=== PATIENT | female | born 1970 | race African-American/Black ===

== ENCOUNTER 2020-03-24 00:10 | Outpatient (CLI) | payer OTHER, SELFPAY ==
[2020-03-24 18:28] LABS: SARS-CoV-2 RNA PCR Negative
== END 2020-03-24 00:11 | disposition home or self-care (01) ==
LOC: ANHCOVIDDT 00:10
PROVIDERS: PCP Nurse Practitioner Family; Visit Provider Obstetrics & Gynecology
DX: Z01.812 Encounter for preprocedural laboratory examination (principal); Z20.828 Contact with and (suspected) exposure to other viral communicable diseases
CPT/HCPCS: 87635; C9803; U0003

== ENCOUNTER 2020-03-26 04:16 | Day surgery (SDC) | payer OTHER, SELFPAY ==
[2020-03-19 15:12] VITALS: BMI 50.3
--- NOTE | 2020-03-26 08:49 | PM.HPGS ---
History of Present Illness History of Present Illness Consent: Risks, benefits, and alternatives have been discussed and questions answered. Patient agrees to proceed with procedure. Chief complaint: Abnormal Uterine Bleeding/ Fibroids Narrative: Saritha Wheeler is a 49 year old female with heavy abnormal bleeding for years. [facility] Past Medical History Medical History (Updated 03/26/20 @ 08:52 by Tim Rico MD) Abnormal uterine bleeding (AUB) Hypertension Surgical History Surgical History (Updated 03/26/20 @ 08:51 by Tim Rico MD) H/O: Social History Social History Smoking status: Never smoker Spiritual care concerns: No Meds Home Medications and Allergies Home Medications Medication Instructions Recorded Confirmed Type ergocalciferol (vitamin D2) 50,000 unit PO WEEKLY 03/19/20 03/19/20 History hydrochlorothiazide 50 mg PO DAILY 03/19/20 03/19/20 History liraglutide (weight loss) [Saxenda] 3 mg SUBCUT DAILY 03/19/20 03/19/20 History multivitamin 1 tablet PO DAILY 03/19/20 03/19/20 History omega 6-qoz-sow-fish oil [Fish Oil] 1 cap PO DAILY 03/19/20 03/19/20 History Allergies Allergy/AdvReac Type Severity Reaction Status Date / Time hydrocodone AdvReac HALLUCINATI Verified 03/19/20 15:13 ONS Exam Const: General: no acute distress Resp: Auscultation: clear to auscultation bilaterally Cardio: Rate: regular rate Rhythm: regular rhythm GI: GI Palp: Yes Soft to palpation : External Female Exam: normal external appearance Assessment and Plan Assessment and plan (1) Hypertension: Code(s): I10 - Essential (primary) hypertension Status: Acute (2) H/O: : Code(s): Z98.891 - History of uterine scar from previous surgery Status: Acute (3) Abnormal uterine bleeding (AUB): Code(s): N93.9 - Abnormal uterine and vaginal bleeding, unspecified Status: Acute Assessment and Plan: scheduled for a hysteroscopy dilation and curettage with possible myosure.
[2020-03-26] MEDS: ACETAMINOPHEN 500 MG TABLET 1000 MG PO (12:08)
[2020-03-26] MEDS: LACTATED RINGERS 1,000 ML 30 ML IV CONT (12:08)
--- NOTE | 2020-03-26 12:52 | WPDANESEPPF ---
Anes - Initial Pre Proc Eval Procedure: Operation Date: 03/26/20 14:30 Proposed Procedures p Hysteroscopy, Dilation And Curettage, Possible Myosure - Tim Rico MD Date/Time: 03/26/20 12:52 Surgeon: Tim Rico MD Pre Op Diagnosis: Abnormal Uterine Bleeding/ Fibroids Patient Data Age: 49 Gender: F Height: 5 ft Weight: 117.03 kg Allergies Allergy/AdvReac Type Severity Reaction Status Date / Time hydrocodone AdvReac HALLUCINATI Verified 03/26/20 12:50 ONS Home Medications Medication Instructions Recorded Confirmed Type ergocalciferol (vitamin D2) 50,000 unit PO WEEKLY 03/19/20 03/26/20 History hydrochlorothiazide 50 mg PO DAILY 03/19/20 03/26/20 History liraglutide (weight loss) [Saxenda] 3 mg SUBCUT DAILY 03/19/20 03/26/20 History multivitamin 1 tablet PO DAILY 03/19/20 03/26/20 History omega 1-lin-xsy-fish oil [Fish Oil] 1 cap PO DAILY 03/19/20 03/26/20 History Patient hx anesthesia problems: none Family hx anesthesia problems: none PMFSH Past Medical History Medical History Abnormal uterine bleeding (AUB) Hypertension Surgical History Surgical History H/O: Social History Social History Smoking status: Never smoker Spiritual care concerns: No Anes - Eval Final PreProcedure Day of Procedure 03/26/20 12:52 Patient weight: super morbidly obese Heart: regular rate and rhythm Lungs: clear to auscultation Airway: Mallampati scale class II Neurological: alert and oriented Last oral intake: >/= 8 hours ASA classification: III Emergent: no Anesthetic plan: proceed Anesthesia type and monitoring: general GIVS and standard monitoring Informed Consent: The patient's anesthetic plan and its attendant risks and benefits were discussed with the patient/family/POA. Questions were solicited and answers provided to the satisfaction of the patient/family/POA.
[2020-03-26 12:57] VITALS: BP 118/78; PULSE 80; RESP 18; TEMP 37.1; O2SAT 100
--- NOTE | 2020-03-26 13:26 | WPDHPUPDATE1 ---
History and Physical Update Update Date/Time: 03/26/20 13:26 History and Physical has been reviewed, including an updated exam of the patient. There are NO changes in the patient's condition. Risks, benefits, and alternatives have been discussed and questions answered. Patient agrees to proceed with procedure.
--- NOTE | 2020-03-26 14:56 | SUR.OPER ---
1400ml ns in and 1400ml ns measured out, aware
[2020-03-26 15:02] VITALS: BP 147/96; PULSE 78; RESP 12; O2SAT 100
--- NOTE | 2020-03-26 15:02 | PM.PROC ---
Procedure Note - Detailed Date of procedure: 03/26/20 Pre-op diagnosis: Abnormal Uterine Bleeding/ Fibroids Post-op diagnosis: same Procedure performed: hysteroscopy Dilation and curettage Description of procedure: Patient is taken to the operating room and placed in a dorsal lithotomy position. She was reprepped and draped in a normal sterile fashion. a bivalve speculum was placed into the vagina. Anterior lip of the cervix was grasped with a single-tooth tenaculum. Uterus was injected at 2 and 10 o'clock position of the cervix. Uterus was sounded to 8centimeters. The cervix was then serially dilated with Hegar dilators to an 8. The hysteroscope was introduced into the uterine cavity and noted bilateral tubal ostia with thickened endometrial tissue the hysteroscope was removed a sharp curettage was performed in all 4 quadrants of the uterus. The products were sent to pathology instruments were removed from the vagina tenaculum site was hemostatic patient tolerated procedure well sponge lap and needle counts were correct x2. Anesthesia: MAC and local Surgeon: Tim Rico MD Estimated blood loss (mL): 10 Drains: No Packing: No Pathology: yes Complications: None Condition: stable Disposition: observation
[2020-03-26 15:30] VITALS: BP 139/95; PULSE 72; RESP 12
[2020-03-26 16:00] VITALS: BP 134/83; PULSE 65; RESP 12
[2020-03-26 16:20] VITALS: BP 133/89; PULSE 70; RESP 12
== END 2020-03-26 16:38 | disposition home or self-care (01) ==
PROVIDERS: PCP Nurse Practitioner Family; Visit Provider Obstetrics & Gynecology
PROC: 0U5B8ZZ Destruction of Endometrium, Via Natural or Artificial Opening Endoscopic (ICD-10-PCS; CPT 58563; principal; 2020-03-26 14:30)
DX: N93.9 Abnormal uterine and vaginal bleeding, unspecified (principal); I10 Essential (primary) hypertension; E66.01 Morbid (severe) obesity due to excess calories; Z68.43 Body mass index [BMI] 50.0-59.9, adult
CPT/HCPCS: 58558; 87635; 88305; A9270; C9803; J2001; J2250; J2704; J3010; J7030; J7120; U0003

== ENCOUNTER 2020-05-18 00:27 | Outpatient (CLI) | payer OTHER, SELFPAY ==
[2020-05-18 19:47] LABS: SARS-CoV-2 RNA PCR Negative
== END 2020-05-18 00:28 | disposition home or self-care (01) ==
LOC: ANHCOVIDDT 00:29
PROVIDERS: PCP Nurse Practitioner Family; Visit Provider Obstetrics & Gynecology
DX: Z01.812 Encounter for preprocedural laboratory examination (principal); Z20.828 Contact with and (suspected) exposure to other viral communicable diseases
CPT/HCPCS: 87635; C9803; U0003

== ENCOUNTER 2020-05-21 00:12 | Day surgery (SDC) | payer OTHER, SELFPAY ==
[2020-05-06 15:42] VITALS: BMI 49.5
[2020-05-21] VITALS (10 sets, daily range): BP systolic 124–158; BP diastolic 69–97; PULSE 54–78; RESP 12–18; TEMP 36.1–36.5; O2SAT 90–100
--- NOTE | 2020-05-21 11:22 | PM.HPGS ---
History of Present Illness History of Present Illness Consent: Risks, benefits, and alternatives have been discussed and questions answered. Patient agrees to proceed with procedure. Chief complaint: menorrhaghia,desires sterilization Narrative: Saritha Wheeler is a 49 year old female with history of abnormal bleeding and desires permanent sterilizaiton. Review of Systems Review of Systems: All systems reviewed & are unremarkable except as noted in HPI and below PMFSH Past Medical History Medical History (Updated 05/21/20 @ 11:25 by Tim Rico MD) Abnormal uterine bleeding (AUB) Hypertension Sterilization Surgical History Surgical History H/O: Social History Social History Smoking status: Never smoker Substance use: never Living arrangements: with family Spiritual care concerns: No Meds Home Medications and Allergies Home Medications Medication Instructions Recorded Confirmed Type ergocalciferol (vitamin D2) 50,000 unit PO WEEKLY 03/19/20 05/06/20 History hydrochlorothiazide 50 mg PO DAILY 03/19/20 05/06/20 History liraglutide (weight loss) [Saxenda] 3 mg SUBCUT DAILY 03/19/20 05/06/20 History multivitamin 1 tablet PO DAILY 03/19/20 05/06/20 History omega 3-cxg-qpa-fish oil [Fish Oil] 1 cap PO DAILY 03/19/20 05/06/20 History progesterone micronized 100 mg PO DAILY 05/06/20 05/06/20 History Allergies Allergy/AdvReac Type Severity Reaction Status Date / Time hydrocodone AdvReac HALLUCINATI Verified 05/06/20 15:20 ONS Exam Cardio: Rate: regular rate GI: Inspection: obesity : External Female Exam: normal external appearance Bimanual exam- vagina & uterus: enlarged Assessment and Plan Assessment and plan (1) Abnormal uterine bleeding (AUB): Code(s): N93.9 - Abnormal uterine and vaginal bleeding, unspecified Status: Acute Assessment and Plan: scheduled for a laparoscopy with bilateral tubal ligation and hysteroscopy with ablation. (2) Sterilization: Code(s): Z30.2 - Encounter for sterilization Status: Acute
--- NOTE | 2020-05-21 11:42 | WPDHPUPDATE1 ---
History and Physical Update Update Date/Time: 05/21/20 11:42 History and Physical has been reviewed, including an updated exam of the patient. There are NO changes in the patient's condition. Risks, benefits, and alternatives have been discussed and questions answered. Patient agrees to proceed with procedure.
[2020-05-21] MEDS: KETOROLAC 15 MG/ML VIAL (*BKC) IV PUSH (12:01)
[2020-05-21] MEDS: ACETAMINOPHEN 500 MG TABLET 1000 MG PO (12:01)
[2020-05-21] MEDS: LACTATED RINGERS 1,000 ML 30 ML IV CONT ×2 (12:01→14:06)
--- NOTE | 2020-05-21 12:30 | WPDANESEPPF ---
Anes - Initial Pre Proc Eval Procedure: Operation Date: 05/21/20 13:00 Proposed Procedures p Hysteroscopy with Katie Ablation - Tim Rico MD s Laparoscopic Bilateral Tubal Sterilization with Fallopian Rings - Tim Rico MD Date/Time: 05/21/20 12:30 Surgeon: Tim Rico MD Pre Op Diagnosis: menorrhaghia,desires sterilization Patient Data Age: 49 Gender: F Height: 5 ft Weight: 120 kg Last Vital Signs Temp 36.1 C L 05/21/20 12:10 Pulse 78 05/21/20 12:10 Resp 18 05/21/20 12:10 BP 158/93 H 05/21/20 12:10 Pulse Ox 100 05/21/20 12:10 Allergies Allergy/AdvReac Type Severity Reaction Status Date / Time hydrocodone AdvReac HALLUCINATI Verified 05/21/20 12:06 ONS Home Medications Medication Instructions Recorded Confirmed Type ergocalciferol (vitamin D2) 50,000 unit PO WEEKLY 03/19/20 05/21/20 History hydrochlorothiazide 50 mg PO DAILY 03/19/20 05/21/20 History liraglutide (weight loss) [Saxenda] 3 mg SUBCUT DAILY 03/19/20 05/21/20 History multivitamin 1 tablet PO DAILY 03/19/20 05/21/20 History omega 1-llk-vcq-fish oil [Fish Oil] 1 cap PO DAILY 03/19/20 05/21/20 History progesterone micronized 100 mg PO DAILY 05/06/20 05/21/20 History Patient hx anesthesia problems: none Family hx anesthesia problems: none [facility] Past Medical History Medical History Abnormal uterine bleeding (AUB) Hypertension Sterilization Surgical History Surgical History H/O: Social History Social History Smoking status: Never smoker Substance use: never Living arrangements: with family Spiritual care concerns: No Anes - Eval Final PreProcedure Day of Procedure 05/21/20 12:31 Patient weight: super morbidly obese Heart: regular rate and rhythm Lungs: clear to auscultation Airway: Mallampati scale class II Neurological: alert and oriented Last oral intake: >/= 8 hours ASA classification: III Emergent: no Anesthetic plan: proceed Anesthesia type and monitoring: general GIVS and standard monitoring Informed Consent: The patient's anesthetic plan and its attendant risks and benefits were discussed with the patient/family/POA. Questions were solicited and answers provided to the satisfaction of the patient/family/POA.
[2020-05-21] MEDS: LIDOCAINE HCL 1% LOCAL INJ 20 ML VIAL 50 ML INFILTRATE (13:19)
[2020-05-21] MEDS: KETOROLAC 30 MG/ML VIAL (*BKC) IV PUSH (13:32)
--- NOTE | 2020-05-21 13:52 | SUR.OPER ---
2000ml ns in, 1900ml ns out. aware
--- NOTE | 2020-05-21 14:05 | PM.PROC ---
Procedure Note - Detailed Date of procedure: 05/21/20 Pre-op diagnosis: menorrhaghia,desires sterilization Post-op diagnosis: same Procedure performed: laparoscopy bilateral tubal ligation and hysteroscopy Description of procedure: The patient is taken to the operating room with IV running and prepped and draped in normal sterile fashion. [place] speculum was placed into the vagina anterior lip of the cervix was grasped with a single-tooth tenaculum and the acorn cervical manipulator was placed. Attention was then turned to the abdomen the the umbilical fold was injected with 5 cc of lidocaine. A vertical incision was made and the Veress needle was inserted and drop test performed. inflated with a drop in pressure and max 15 mm of mercury Veress needle was removed and the trocar was advanced under direct visualization with the laparoscopy. dense adhesions were noted in the bladder and uterus to the abdominal wall. Vision made to make a left lower quadrant incision and and trocar 8 mm was advanced and Direct visualization. The uterus min and manipulated visualizing the left to the fundus of the fimbriated and the Falope ring applicator was used to grasp the Falope into and the Falope ring was placed. Attention was then turned to the right tube and similar procedure performed. The trocars were removed abdomen was allowed to deflate and the incisions were closed with Vicryl suture. Attention was turned to the vagina. The cervix is grasped at the anterior and posterior cervix to straighten the uterus. The uterus is sounded to 8 cm and serially dilated with Hegar dilators hysteroscope was then introduced and unable to visualize the ostia are uterine cavity after several attempts at repositioning of tenaculum and the uterus to visualize. Due to creating a false passage ablation procedure was aborted. The patient tolerated procedure well sponge and lap counts were correct x2. Anesthesia: GLMA Surgeon: Tim Rico MD Estimated blood loss (mL): 20 Drains: No Packing: No Pathology: none sent Complications: None Condition: stable Disposition: observation Findings: densely adhered and scarring of the uterus and bladder to abdominal wall
[2020-05-21] MEDS: fentaNYL CITRATE INJ (*CRX) 100 MCG/2 ML VIAL 25 MCG IV PUSH ×4 (14:29→15:27)
[2020-05-21] MEDS: oxyCODONE HCL (*CRX) 5 MG TAB IR PO (15:40)
== END 2020-05-21 16:56 | disposition home or self-care (01) ==
PROVIDERS: PCP Nurse Practitioner Family; Visit Provider Obstetrics & Gynecology
PROC: 0U5B8ZZ Destruction of Endometrium, Via Natural or Artificial Opening Endoscopic (ICD-10-PCS; CPT 58563; principal; 2020-05-21 13:00)
PROC: (CPT 58671; 2020-05-21 13:00)
DX: Z30.2 Encounter for sterilization (principal); N92.0 Excessive and frequent menstruation with regular cycle; N73.6 Female pelvic peritoneal adhesions (postinfective); I10 Essential (primary) hypertension; E66.01 Morbid (severe) obesity due to excess calories; Z68.43 Body mass index [BMI] 50.0-59.9, adult
CPT/HCPCS: 58671; 58555; A4264; A9270; J0330; J1100; J1885; J2250; J2405; J2704; J3010; J7030; J7120